=== PATIENT | male | born 1945 | race Caucasian/White ===

== ENCOUNTER 2018-04-08 10:32 | Inpatient (IN) | payer OTHER, MEDICARE ==
[~2018-04-08] VITALS: Ht 170.2 cm; Wt 540.3 kg
[~2018-04-08 10:32] MED LIST: ADVAIR DISKUS 21 DSK INH; ALBUTEROL SULFAT3 M1 INH; ALBUTEROL2.5 MG/3 M INH/SOL; AMLODIPINE BES2.5 M1 PO; APIX5T PO; ARICEPT10 M1 PO; ARICEPT10 MG PO; ASPIRIN EC81 M1 PO; ASPIRIN325 M2 PO; AZITHROMYCIN250 M1 PO; CARBIDOPA-LEVO1 EAC7 PO; CARBIDOPA/LEVOD1 TA1 PO; CEFTIN500 M1 PO; COL-RITE100 MG PO; DONEPEZIL HYDROC5 MG PO; FIBRO-TABS1 TAB PO; FLOMAX(MONOGRA0.4 MG PO; FLOMAX0.4 M1 PO; FOLIC ACID0.8 MG PO; FOLIC ACID1 M1 PO; GABAPENTIN300 M2 PO; GUAIFENESI100 MG/5 M PO; KEPPRA500 M1 PO; LOSARTAN POTASS1 TA1 PO; LOSARTAN POTASS1 TA3 PO; LOSARTAN-HCTZ1 EACH PO; MAGNESIUM OXID400 MG PO; MAGNESIUM400 M1 PO; MECLIZINE HCL12.5 M1 PO; MELATONIN3 M4 PO; METFORMIN HCL500 M3 PO; METFORMIN HCL500 MG PO; MORPHINE SULFAT30 M5 PO; MULTIVITAMIN1 TAB PO; NATURAL FOLIC0.4 MG PO; NEURONTIN300 M1 PO; OMEPRAZOLE40 M1 PO; OMEPRAZOLE40 MG PO; PAIN RELIEF650 MG PO; PRAVASTATIN SOD40 MG PO; PRAVASTATIN40 MG PO; PREDNISONE10 M2 PO; PREDNISONE10 MG PO; PREDNISONE20 M1 PO; PREDNISONE5 M1 PO; PROAIR HFA0.09 MG/Ac INH; SERTRALINE HCL25 MG PO; SPIRIVA 18 MCG18 MCG INH; SPIRIVA18 MCG INH; SYMBICORT 160/41 PUF INH; SYMBICORT 80-10.2 GM INH; SYMBICORT 80/4.1 PUF INH; TRAMADOL HCL50 M1 PO; TYLENOL EXTRA500 MG PO
[2018-04-08 12:05] LABS: ABSOLUTE BASOPHIL COUNT 0 /CUMM (0.0-0.2); ABSOLUTE EOSINOPHIL COUNT 0 /CUMM (0.0-0.7); ABSOLUTE GRANULOCYTE CT 4.7 /CUMM (1.4-6.5); ABSOLUTE MONOCYTE COUNT 0.8 /CUMM (0.10-0.60); BASOPHIL % 0.4 % (0.0-2.0); EOSINOPHIL % 0.5 % (0-5); GRANULOCYTE % 71.9 % (42.2-75.2); HEMATOCRIT 30.9 % (42-52); MEAN CORPUSCULAR HGB 27.6 PG (27.0-31.0); MEAN CORPUSCULAR HGB CONC 32.8 G/DL (33.0-37.0); MEAN CORPUSCULAR VOLUME 84.4 FL (80.0-94.0); MEAN PLATELET VOLUME 7.3 FL (7.4-10.4); PLATELET COUNT 350 /CUMM (130-400); RBC DISTRIBUTION WIDTH 17.4 % (11.5-14.5); RED BLOOD CELL CT 3.66 /CUMM (4.70-6.10); WHITE BLOOD CELL COUNT 6.6 /CUMM (4.8-10.8)
--- NOTE | 2018-04-08 12:55 | RADIOLOGY REPORT ---
EXAMINATION: XR CHEST CLINICAL INFORMATION: Shortness of breath. COMPARISON: Chest radiograph 06/13/2016. TECHNIQUE: 2 views of the chest were obtained. FINDINGS: Lungs are well-expanded. There is no focal consolidative disease, pleural effusion, or pneumothorax. The cardiac silhouette and upper mediastinal contours are normal. No acute osseous finding. IMPRESSION: Unremarkable chest radiograph. No consolidative disease or effusion.
[2018-04-08] MEDS ORDERED: PREDNISONE5 M1 PO (13:22)
--- NOTE | 2018-04-08 13:22 | ED DYSPNEA/ASTHMA COMPLAINT ---
History of Present Illness General Chief Complaint: Dyspnea (COPD, CHF, Other) Stated Complaint: SOB Source: patient, family, old records Exam Limitations: no limitations Vital Signs & Intake/Output Vital Signs & Intake/Output Vital Signs Date Time Temp Pulse Resp B/P B/P Pulse O2 O2 Flow FiO2 Mean Ox Delivery Rate 04/08 1517 98.2 93 17 117/58 94 Room Air 04/08 1431 97 04/08 1258 97.8 96 22 117/60 97 Room Air 04/08 1051 97.7 103 20 102/62 96 Room Air Allergies Coded Allergies: NO KNOWN ALLERGIES (01/16/15) Reconcile Medications Acetaminophen (Pain Relief) 650 MG TABLET.ER 1 TAB PO BID PAIN (Reported) Albuterol Sulfate 2.5 MG/3 ML VIAL.NEB 1 Vial INH/VIDYA Q4P PRN COPD (Reported) Amlodipine Besylate 2.5 MG TABLET 1 TAB PO DAILY BP (Reported) Aspirin (Aspirin*) 325 MG TABLET 1 TAB PO DAILY heart health Budesonide/Formoterol Fumarate (Symbicort 80-4.5 Mcg Inhaler) 10.2 GM HFA.AER.AD 2 PUF INH BID COPD Carbidopa/Levodopa (Carbidopa-Levodopa 25-100 Tab) 25 MG-100 MG TABLET 1 TAB PO DAILY PARKINSONS (Reported) Donepezil HCl (Aricept) 10 MG TABLET 1 TAB PO QPM PARKINSONS (Reported) Folic Acid 1 MG TABLET 1 TAB PO DAILY SUPPLEMENT (Reported) Levetiracetam (Keppra) 500 MG TABLET 1 TAB PO BID SEIZURES (Reported) Losartan/Hydrochlorothiazide (Losartan-Hctz 100-12.5 MG Tab) 1 EACH TABLET 1 TAB PO DAILY Blood pressure (Reported) Magnesium Oxide (Magnesium) 400 MG CAPSULE 1 CAP PO DAILY SUPPLEMENT ( Reported) Metformin HCl 500 MG TABLET 1 TAB PO BID DIABETES (Reported) Omeprazole 40 MG CAPSULE.DR 1 CAP PO DAILY ACID REFLUX (Reported) Prednisone 5 MG TABLET 1 TAB PO MoWeFr COPD (Reported) Tiotropium [place] (Spiriva) 18 MCG CAP.W.DEV 1 CAP INH DAILY COPD (Reported) Tramadol HCl 50 MG TABLET 50 MG PO BID PRN ANXIETY/AGITATION/INSOMNIA Triage Note: PT STATES HIS BACK HURTS AND HE CAN'T BREATH VERY WELL. PT STATES HE FELL LAST EVENING INTO HIS CHAIR. Triage Nurses Notes Reviewed? yes Onset: 1 day Duration: day(s):, constant, continues in ED, getting worse Timing: recent history Severity: moderate, severe Activities at Onset: rest Prior Episodes/Possible Cause: chronic episodes Modifying Factors: Improves With: rest. Worsens With: movement. Associated Symptoms: cough, wheezing, weakness HPI: 1 day prior to admission patient complains of increasing shortness of breath nonproductive cough wheezing and weakness. He fell from into his chair now complaining of low mid back pain. Prior to admission he had an episode of nausea and vomiting. He denies fever chills chest pain headache dysuria rash bleeding. Past History Travel History Traveled to [place] past 21 day No Medical History Any Pertinent Medical History? 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 No Review of Systems Review of Systems Constitutional: Reports: see HPI, malaise, weakness. EENTM: Reports: no symptoms. Respiratory: Reports: see HPI, cough, short of breath, wheezing. Cardiovascular: Reports: no symptoms. GI: Reports: see HPI, nausea, vomiting. Genitourinary: Reports: no symptoms. Musculoskeletal: Reports: see HPI, back pain. Skin: Reports: no symptoms. Neurological/Psychological: Reports: no symptoms. Hematologic/Endocrine: Reports: no symptoms. Immunologic/Allergic: Reports: no symptoms. All Other Systems: Reviewed and Negative Physical Exam Physical Exam General Appearance: well developed/nourished, alert, awake, anxious, moderate distress, obese Head: atraumatic, normal appearance Eyes: Bilateral: normal appearance, PERRL, EOMI. Ears, Nose, Throat: normal pharynx, normal ENT inspection, hearing grossly normal Neck: normal inspection, supple, full range of motion, no midline tenderness Respiratory: chest non-tender, quiet respiration, decreased breath sounds, wheezing Cardiovascular: regular rate/rhythm, normal peripheral pulses, tachycardia, norml femoral pulses equa Peripheral Pulses: 4+ carotid (R), 4+ carotid (L) Gastrointestinal: normal bowel sounds, soft, non-tender, no organomegaly Extremities: normal inspection, normal capillary refill, normal range of motion, no edema Neurologic/Psych: no motor/sensory deficits, awake, alert, oriented x 3, normal mood/affect, 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 Yes No ASA d/t Pharmacological CI CVA/TIA Diagnosis No Sepsis Present: No Sepsis Focused Exam Completed? No Progress Differential Diagnosis: asthma, bronchitis, CHF, COPD, pneumonia Plan of Care: Orders Procedure Date/time Status Add-on Test (ER Only) 04/08 1623 Active LACTIC ACID 04/08 1623 Active URINALYSIS 04/08 1301 Active GLYCOSYLATED HGB 04/08 1154 Active CREATINE PHOSPHOKINASE 04/08 1154 Active TROPONIN LEVEL 04/08 1136 Active COMPREHENSIVE METABOLIC PANEL 04/08 1136 Active CBC WITHOUT DIFFERENTIAL 04/08 1136 Complete EKG 04/08 1033 Active Laboratory Tests 04/08/18 1556: Urine Color Pending, Urine Clarity Pending, Urine pH Pending, Ur Specific [place] Pending, Urine Protein Pending, Urine Ketones Pending, Urine Nitrite Pending, Urine Bilirubin Pending, Urine Urobilinogen Pending, Ur Leukocyte Esterase Pending, Ur Microscopic SEDIMENT EXAMINED, Urine RBC Pending, Urine Hemoglobin Pending, Urine Glucose Pending 04/08/18 1154: Anion Gap 20 H, Estimated GFR 28 L, BUN/Creatinine Ratio 21.3, Glucose 104 H, Hemoglobin A1c Pending, Calcium 8.4, Total Bilirubin 0.3, AST 15 L, ALT 22, Alkaline Phosphatase 84, Creatine Kinase Pending, Troponin I < 0.01, Total Protein 7.0, Albumin 4.1, Globulin 2.9, Albumin/Globulin Ratio 1.4, CBC w Diff NO MAN DIFF REQ, RBC 3.66 L, MCV 84.4, MCH 27.6, MCHC 32.8 L, RDW 17.4 H, MPV 7.3 L, Gran % 71.9, Lymphocytes % 15.4 L, Monocytes % 11.8 H, Eosinophils % 0.5, Basophils % 0.4, Absolute Granulocytes 4.7, Absolute Lymphocytes 1.0 L, Absolute Monocytes 0.8 H, Absolute Eosinophils 0, Absolute Basophils 0 Diagnostic Imaging: Viewed by Me: Radiology Read, CT Scan. Discussed w/RAD: Radiology Read, CT Scan. Radiology Impression: 1. There are no acute fractures or subluxations. 2. There are sequelae of an instrumented posterior decompression and fusion at L4 and L5. The hardware appears intact. 3. There are multilevel spondylitic changes with spondylolistheses, facet arthropathy and foraminal narrowing as described above. 4. There is a partially visualized hiatal hernia, and is evidence of diverticulosis., 1. Hiatal hernia containing a significant portion of the stomach. 2. Nonobstructing calculus, lower pole, left kidney. No hydronephrosis. 3. Diverticulosis without diverticulitis. 4. Posterior spinal fusion L4-L5, ( reported separately). CXR Impression: Unremarkable chest radiograph. No consolidative disease or effusion. Initial ED EKG: normal axis, normal intervals, normal p-waves, normal QRS complex, normal sinus rhythm, rhythm (sinus tachycardia), no ST T wave changes Prior EKG: unchanged Rhythm Strip: sinus tachycardia Departure Departure Time of Disposition: 1633 Disposition: STILL A PATIENT Condition: Stable Clinical Impression Primary Impression: Acute kidney injury Secondary Impressions: Fall at home, Weakness Referrals: Vinnie Stanford MD (PCP/Family) Departure Forms: Customer Survey General Discharge Information Admission Note Spoke With: Vinnie Stanford MD Documentation of Exam: Documentation of any treatments & extenuating circumstances including Concerns Regarding Discharge (functional status, medication knowledge or non-compliance, living conditions, etc.) that warrant an admission rather than observation: Serial beta agonist nebs gentle IV hydration serial lab exam physical therapy medication adjustment ensure safety continuing care discharge planning. Critical Care Note Critical Care Note Critical Care Time: 30-74 min (40)
--- NOTE | 2018-04-08 15:50 | CT SCAN REPORT ---
EXAMINATION: CT LUMBAR SPINE WITHOUT CONTRAST CLINICAL INFORMATION: Low back pain after slip. Assess for fracture. COMPARISON: MRI scan of the lumbar spine 05/03/2008. TECHNIQUE: Helical non-contrast CT images were obtained through the lumbar spine and 1.25 and 2.5 mm axial reconstructions were reviewed along with sagittal and coronal MPRs. DLP: 1207.58 mGy-cm FINDINGS: Since the prior study there has been an instrumented posterior decompression and fusion at L4 on L5. There are bilateral pedicular screws in L4 and L5 joined by vertical rods and a transverse bar. The hardware appears intact without evidence of fracture or loosening. There is an intervertebral disc device at L4-L5. There is a mild levoscoliosis. There are mild retrolistheses of L2 on L3, L3 on L4 and L5 on S1. The mild anterolisthesis of L4 on L5 is not appreciated on this postoperative study. There is narrowing of intervertebral disc height at multiple levels with vacuum disc changes. There are degenerative endplate contour changes most prominently noted at L2-L3. Irregularity of the superior body of T12 is unchanged compared to the prior MRI scan. There are no acute fractures. A partially visualized hiatal hernia is demonstrated. There are atheromatous calcifications of the aorta. No aneurysms are demonstrated. There are multiple right-sided renal cysts. There is moderate sigmoid diverticulosis. The sacroiliac joints are intact. SPINAL LEVELS: T12-L1: The disc configuration is normal. The central canal and neural foramina are widely patent. The facet joints are normal. L1-L2: There is mild bilateral facet arthropathy. There is a right sided disc protrusion extending far laterally without definite exiting nerve root impingement. There is no central stenosis. L2-L3: There is moderate bilateral facet arthropathy. There is a posterior disc osteophyte complex extending into the right greater than left neural foramina. There is no central stenosis. L3-L4: There is bilateral facet arthropathy. There is a posterior disc protrusion extending into the neural foramina bilaterally. There is narrowing of the left greater than right subarticular recesses. There is no central stenosis. L4-L5: There are sequelae of a posterior decompression. There are facet arthropathic changes, and evidence of lateral mass fusions. There appears to be an osteophytic ridge extending into the right neural foramen. The left neural foramen is patent. There is no central stenosis. L5-S1: There is severe left and moderate right facet arthropathy. There is a posterior disc osteophyte complex extending into the neural foramina bilaterally. There appears to be mild impingement on the traversing S1 nerve roots, but there is no central stenosis. IMPRESSION: 1. There are no acute fractures or subluxations. 2. There are sequelae of an instrumented posterior decompression and fusion at L4 and L5. The hardware appears intact. 3. There are multilevel spondylitic changes with spondylolistheses, facet arthropathy and foraminal narrowing as described above. 4. There is a partially visualized hiatal hernia, and is evidence of diverticulosis.
--- NOTE | 2018-04-08 16:26 | CT SCAN REPORT ---
EXAMINATION: CT ABDOMEN AND PELVIS WITHOUT CONTRAST CLINICAL INFORMATION: 73-year-old male patient with back pain. Trauma. "Worsening renal fcn". COMPARISON: None pertinent. TECHNIQUE: Multidetector volumetric imaging was performed from the superior aspect of the liver through the pubic symphysis. Sagittal and coronal reformatted images were obtained on the technologist's workstation. DLP: 651 mGy-cm FINDINGS: Family Resource Management Specialist: A posterior spinal fusion has been performed at the level of L4-L5. There is diffuse calcification of the abdominal aorta. A moderate size hiatal hernia is present. LUNG BASES: The visualized lung bases are unremarkable. There is intrafissural fat in the inferior aspect of the left major fissure. A hiatal hernia contains approximately one half the stomach. LIVER, GALLBLADDER, AND BILIARY TREE: Normal. PANCREAS: Age-related atrophy. SPLEEN: Unremarkable. ADRENAL GLANDS: Unremarkable. KIDNEYS AND URETERS: The kidneys are normal in size, shape, and attenuation. The right kidney measures 11.1 cm in length, the left kidney measures 10.7 cm. No hydronephrosis. A 4 mm nonobstructing calculus is located in the lower pole the left kidney. A 1.6 cm in diameter exophytic cyst arises from the midportion of the right kidney. A 0.9 cm exophytic cyst arises from the upper pole of the right kidney. There is bilateral chronic perinephric stranding. BLADDER: Partially filled and unremarkable. GASTROINTESTINAL TRACT: Sigmoid diverticulosis is present without diverticulitis. The appendix is normal and contains some dense intraluminal material. Small bowel is not dilated. ABDOMINAL WALL: There is a small fat-containing umbilical hernia. LYMPH NODES: Normal. VASCULAR: Calcific atherosclerosis involves the thoracic and abdominal aorta and branch vessels. PELVIC VISCERA: Coarse calcifications are present in otherwise normal-appearing prostate gland. OSSEOUS STRUCTURES: No fractures. A dedicated CT exam of the lumbosacral spine was obtained today and the results are included in a separate report. IMPRESSION: 1. Hiatal hernia containing a significant portion of the stomach. 2. Nonobstructing calculus, lower pole, left kidney. No hydronephrosis. 3. Diverticulosis without diverticulitis. 4. Posterior spinal fusion L4-L5, (reported separately).
--- NOTE | 2018-04-08 17:13 | History & Physical ---
Latasha OWENS,[facility] 04/08/18 1942: General Information and HPI MD Statement: I have seen and personally examined MEGAN CHERY and documented this H&P. The patient is a 73 year old M who presented with a patient stated chief complaint of []. History of Present Illness: 73-year-old gentleman with past medical history of COPD, diastolic CHF, HTN, Parkinson's disease, lewy body dementia, HLD, bronchomalacia, COPD not on home O2, GERD, chronic back pain and diabetes who presented to the ED with complaints of shortness of breath, diarrhea. Patient was in usual state of health until a week ago. Patient was taking pupe-isr-iladzmd Imodium for his constipation. According to the niece was at the bedside found that he completed the full bottle of Imodium within a week. For the past 1 week he's been having watery diarrhea followed by decreased by mouth intake. At baseline, according to the niece he is alert and oriented 3. But she found him more confused since today morning. Patient's mentation has been declining since the of his . Allergies/Medications Allergies: Coded Allergies: NO KNOWN ALLERGIES (01/16/15) Home Med list Acetaminophen (Pain Relief) 650 MG TABLET.ER 1 TAB PO BID PAIN (Reported) Albuterol Sulfate 2.5 MG/3 ML VIAL.NEB 1 Vial INH/VIDYA Q4P PRN COPD (Reported) Amlodipine Besylate 2.5 MG TABLET 1 TAB PO DAILY BP (Reported) Budesonide/Formoterol Fumarate (Symbicort 80-4.5 Mcg Inhaler) 10.2 GM HFA.AER.AD 2 PUF INH BID COPD Carbidopa/Levodopa (Carbidopa-Levodopa 25-100 Tab) 25 MG-100 MG TABLET 1 TAB PO DAILY PARKINSONS (Reported) Donepezil HCl (Aricept) 10 MG TABLET 1 TAB PO QPM PARKINSONS (Reported) Folic Acid 1 MG TABLET 1 TAB PO DAILY SUPPLEMENT (Reported) Levetiracetam (Keppra) 500 MG TABLET 1 TAB PO BID SEIZURES (Reported) Losartan/Hydrochlorothiazide (Losartan-Hctz 100-12.5 MG Tab) 1 EACH TABLET 1 TAB PO DAILY Blood pressure (Reported) Magnesium Oxide (Magnesium) 400 MG CAPSULE 1 CAP PO DAILY SUPPLEMENT ( Reported) Metformin HCl 500 MG TABLET 1 TAB PO BID DIABETES (Reported) Omeprazole 40 MG CAPSULE. 1 CAP PO DAILY ACID REFLUX (Reported) Prednisone 5 MG TABLET 1 TAB PO MoWeFr COPD (Reported) Tiotropium [place] (Spiriva) 18 MCG CAP.W.DEV 1 CAP INH DAILY COPD (Reported) Tramadol HCl 50 MG TABLET 50 MG PO BID PRN ANXIETY/AGITATION/INSOMNIA Compliance With Home Meds: GOOD Past History Travel History Traveled to [place] past 21 day No Medical History Neurological: Parkinson's disease, seizure EENT: NONE Cardiovascular: hypertension, hyperlipidemia Respiratory: COPD Gastrointestinal: GERD Hepatic: NONE Renal: NONE Musculoskeletal: chronic back pain Psychiatric: NONE Endocrine: diabetes Blood Disorders: NONE Cancer(s): NONE CATECHIST/Reproductive: NONE History of MRSA: No History of VRE: No History of CDIFF: No Pneumonia Vaccine: 11/17/15 Surgical History Surgical History: non-contributory, N Past Family/Social History Family History Relations & Conditions if any SON FH: multiple sclerosis SON FH: lung cancer Psychosocial History Where do you live? Home Who Do You Live With? spouse Services at Home: None Primary Language: Nepali ETOH Use: denies use Illicit Drug Use: denies illicit drug use Functional Ability ADLs Independent: dressing, eating, toileting, bathing. Ambulation: independent IADLs Independent: shopping, housework, finances, food prep, telephone, transportation , medication admin. Review of Systems Review of Systems Constitutional: Reports: no symptoms. Cardiovascular: Reports: no symptoms. Respiratory: Reports: no symptoms. GI: Reports: diarrhea. Genitourinary: Reports: no symptoms. Musculoskeletal: Reports: no symptoms. Skin: Reports: no symptoms. Neurological/Psychological: Reports: confusion, dementia. Exam & Diagnostic Data Last 24 Hrs of Vital Signs/I&O Vital Signs Date Time Temp Pulse Resp B/P B/P Pulse O2 O2 Flow FiO2 Mean Ox Delivery Rate 04/08 1905 97.8 87 18 136/61 96 Room Air 04/08 1517 98.2 93 17 117/58 94 Room Air 04/08 1431 97 04/08 1258 97.8 96 22 117/60 97 Room Air 04/08 1051 97.7 103 20 102/62 96 Room Air Intake & Output 04/08 1600 04/08 0800 04/08 0000 Intake Total Output Total Balance Patient 200 lb Weight Weight Reported by Patient Measurement Method Physical Exam General Appearance Alert, Cooperative, No Acute Distress, oriented x 2 Cardiovascular Regular Rate, Normal S1, Normal S2 Lungs Clear to Auscultation Abdomen Soft, No Tenderness, No Hepatospenomegaly Neurological Normal Speech, Sensation Intact Extremities No Edema Last 24 Hrs of Labs/Yvon: Laboratory Tests 04/08/18 1731: Lactic Acid 2.1 04/08/18 1556: Urinalysis LIGHT H, Urine Color YEL, Urine Clarity CLEAR, Urine pH 6.0, Ur Specific [place] >= 1.030, Urine Protein NEG, Urine Ketones NEG, Urine Nitrite NEG, Urine Bilirubin NEG, Urine Urobilinogen 0.2, Ur Leukocyte Esterase NEG, Ur Microscopic SEDIMENT EXAMINED, Urine RBC 50-75 H, Urine WBC RARE, Ur Epithelial Cells RARE, Urine Bacteria RARE H, Urine Mucus RARE, Urine Hemoglobin LARGE H, Urine Glucose NEG 04/08/18 1154: Anion Gap 20 H, Estimated GFR 28 L, BUN/Creatinine Ratio 21.3, Glucose 104 H, Hemoglobin A1c Pending, Calcium 8.4, Magnesium 2.3, Total Bilirubin 0.3, AST 15 L, ALT 22, Alkaline Phosphatase 84, Creatine Kinase 164, Troponin I < 0.01, Total Protein 7.0, Albumin 4.1, Globulin 2.9, Albumin/Globulin Ratio 1.4, Vitamin B12 > 1000 H, Folate Pending, Cortisol AM Sample 14.4, CBC w Diff NO MAN DIFF REQ, RBC 3.66 L, MCV 84.4, MCH 27.6, MCHC 32.8 L, RDW 17.4 H, MPV 7.3 L, Gran % 71.9, Lymphocytes % 15.4 L, Monocytes % 11.8 H, Eosinophils % 0.5, Basophils % 0.4, Absolute Granulocytes 4.7, Absolute Lymphocytes 1.0 L, Absolute Monocytes 0.8 H, Absolute Eosinophils 0, Absolute Basophils 0 Microbiology 04/08 180 URINE ROUT: Urine Culture - ORD 04/08 174 STOOL: Clostridium difficile Toxin A & B - COLB Assessment/Plan Assessment: 73-year-old gentleman with past medical history of COPD, diastolic CHF, HTN, Parkinson's disease, HLD, COPD not on home O2, GERD, chronic back pain and diabetes who presented to the ED with complaints of shortness of breath, diarrhea. Admission vitals temperature 98.2, pulse rate 93, blood pressure 117/58, pulse oximeter 94 at room air. Admission labs WBC 6.6, hemoglobin 10.1, platelets 350, sodium 144, potassium 4.7, BUN 49 creatinine 2.3, CO2 20, anion gap 20, GFR 28, troponin 0.01, alkaline phosphatase 84, pending urine analysis ED treatment Albuterol, ipratropium, acetaminophen IV Imaging Chest [id number] chest radiograph ct Lumbar There are sequelae of an instrumented posterior decompression and fusion at L4 and L5. The hardware appears intact.There are multilevel spondylitic changes with spondylolistheses, facet arthropathy and foraminal narrowing as described above. There is a partially visualized hiatal hernia, and is evidence of diverticulosis. Assessment and plan 1. Diarrhe with anionic gap metabolic acidosis 2. JAN 3. Fall-fall precautions 4. Parkinson's 5. Dementia 6. Bronchomalacia * Admitted [facility] * Diarrhea with anionic gap metabolic acidosis/JAN-we will treat him with gentle hydration. * Fall-secondary due to diarrhea/Parkinson's at baseline patient doesn't use cane/walker. Physical therapy consult. Continue Sinemet * Seizures-patient is on Keppra. We'll continue the same and check Keppra level. * Confusion-we will check urine analysis and culture. * Diabetes-we will hold metformin and put him on Accu-Cheks and sliding scale NovoLog insulin Home medications Acetaminophen-hold Albuterol-continue Amlodipine 2.5 mg daily Aspirin 325 mg daily-change to aspirin 81 Symbicort-continue Sinemet 1 tablet daily-continue Donnapezil 10 mg every afternoon-no hold Folic acid-continue Keppra 500 twice a day-check Keppra levels and continue Losartan/hydrochlorothiazide 1 tablet daily-hold Metformin 500 twice a day omeprazole 40 daily-hold Prednisone 5 mg 1 tablet Wednesday/Wednesday/Wednesday-hold Spiriva-continue Tramadol 50prn-continue As Ranked By This Provider Problem List: 1. Fall at home 2. Acute kidney injury Core Measures/Misc (07/25) Acute Coronary Syndrome ACS Diagnosis: No Congestive Heart Failure Congestive Heart Failure Diagnosis No Cerebrovascular Accident CVA/TIA Diagnosis: No VTE (View Protocol) VTE Risk Factors Age>40 No Mechanical VTE Prophylaxis d/t Other No VTE Pharm Prophylaxis d/t Other Sepsis (View protocol) Sepsis Present: No If YES complete Sepsis Event Note If YES complete Sepsis Event Note Jason Padilla 04/09/18 0640: Core Measures/Misc (07/25) Sepsis (View protocol) If YES complete Sepsis Event Note If YES complete Sepsis Event Note Resident Review Statement Resident Statement: examined this patient, discussed with dental internship, agreed with dental internship, discussed with family, reviewed EMR data (avail), discussed with nursing , discussed with case mgmt, reviewed images, amended to note Other Findings: 73-year-old gentleman past medical history of bronchial tracheomalacia, diastolic CHF, hypertension, Parkinson's disease who presented to [facility] ED with complaints of diarrhea and worsening breathing symptoms. Patient's diarrhea has been ongoing for last 1 week, and not controlled with use of adoc-wph-bqkwovr Imodium. No recent antibiotic use, no recent sick contacts, no recent travel, no outside food intake. Afebrile since arrival to ED. Labs significant for chronic normocytic anemia, with increased RDW suggestive of some degree of underlying iron deficiency. Chemistries significant for AGMA likely in the setting of acute kidney injury. Normal lactate. UA unremarkable. Also complains of back pain, with no CT evidence of acute fractures or subluxations. Positive multilevel spondylitic changes. 1. Diarrhea. Check C. difficile. Symptomatic management. IV fluids. May use antimotility agents, low suspicion for C. difficile as well as data for use of antimotility agents in low suspicion C. difficile is equivocal. Renal causes-calcium channel blockers (like Norvasc) can contribute to noninfection diarrhea. 2. Acute kidney injury. Likely secondary to diarrhea and dehydration. IV fluid repletion. Check BEP in morning. No evidence of obstruction on CT abdomen pelvis. Get post void residual volume. Straight cath if necessary. Hold losartan HCTZ as well as metformin. 3. Bronchomalacia. TRC nebs. Inhalers as prescribed. 4. Chronic back pain. Continue tramadol. Physical therapy evaluation. 5. History of seizures. Continue Keppra at current dose. Check Keppra levels. 6. History of Parkinson's. Continue Sinemet. 7. History of diabetes. Accu-Cheks 3 times daily before meals at bedtime. Mealtime and bedtime coverage with NovoLog ISS. DNR/DNI. Heparin subcu for DVT prophylaxis. Consistent carbohydrate diet.
--- NOTE | 2018-04-08 17:27 | PN- Att Addend ---
Attending Addendum Attending Brief Note Full note per chief informatics officer Pt with multiple issues as noted below with Sig diarrhea for 2 days Decreased po intake Now fall and low back pain Has worseing dementia In the ed has ARF with dehydration with met acidosis and being admitted has severe copd but no sig wheezing Has severe tracheobronchomalacia Medical History Any Pertinent Medical History? 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 No Review of Systems Review of Systems Constitutional: Reports: see HPI, malaise, weakness. EENTM: Reports: no symptoms. Respiratory: Reports: see HPI, cough, short of breath, wheezing. Cardiovascular: Reports: no symptoms. GI: Reports: see HPI, nausea, vomiting. Genitourinary: Reports: no symptoms. Musculoskeletal: Reports: see HPI, back pain. Skin: Reports: no symptoms. Neurological/Psychological: Reports: no symptoms. Hematologic/Endocrine: Reports: no symptoms. Immunologic/Allergic: Reports: no symptoms. All Other Systems: Reviewed and Negative Vital Signs Date Time Temp Pulse Resp B/P B/P Pulse O2 O2 Flow FiO2 Mean Ox Delivery Rate 04/08 1517 98.2 93 17 117/58 94 Room Air 04/08 1431 97 04/08 1258 97.8 96 22 117/60 97 Room Air 04/08 1051 97.7 103 20 102/62 96 Room Air Laboratory Tests 04/08/18 1556: Urinalysis LIGHT H, Urine Color YEL, Urine Clarity CLEAR, Urine pH 6.0, Ur Specific [place] >= 1.030, Urine Protein NEG, Urine Ketones NEG, Urine Nitrite NEG, Urine Bilirubin NEG, Urine Urobilinogen 0.2, Ur Leukocyte Esterase NEG, Ur Microscopic SEDIMENT EXAMINED, Urine RBC 50-75 H, Urine WBC RARE, Ur Epithelial Cells RARE, Urine Bacteria RARE H, Urine Mucus RARE, Urine Hemoglobin LARGE H, Urine Glucose NEG 04/08/18 1154: Anion Gap 20 H, Estimated GFR 28 L, BUN/Creatinine Ratio 21.3, Glucose 104 H, Hemoglobin A1c Pending, Calcium 8.4, Total Bilirubin 0.3, AST 15 L, ALT 22, Alkaline Phosphatase 84, Creatine Kinase 164, Troponin I < 0.01, Total Protein 7.0, Albumin 4.1, Globulin 2.9, Albumin/Globulin Ratio 1.4, CBC w Diff NO MAN DIFF REQ, RBC 3.66 L, MCV 84.4, MCH 27.6, MCHC 32.8 L, RDW 17.4 H, MPV 7.3 L , Gran % 71.9, Lymphocytes % 15.4 L, Monocytes % 11.8 H, Eosinophils % 0.5, Basophils % 0.4, Absolute Granulocytes 4.7, Absolute Lymphocytes 1.0 L, Absolute Monocytes 0.8 H, Absolute Eosinophils 0, Absolute Basophils 0 Orders Procedure Date/time Status Consistent Carbohydrate 2 04/09 B Active OXYGEN SETUP (GEN) 04/08 1652 Active Saline Lock 04/08 1652 Active Admit to inpatient 04/08 1652 Active Vital Signs 04/08 1652 Active Activity/Ambulation 04/08 1652 Active Code Status 04/08 1652 Active Add-on Test (ER Only) 04/08 1623 Active LACTIC ACID 04/08 1623 Active URINALYSIS 04/08 1301 Complete GLYCOSYLATED HGB 04/08 1154 Active CREATINE PHOSPHOKINASE 04/08 1154 Active TROPONIN LEVEL 04/08 1136 Active COMPREHENSIVE METABOLIC PANEL 04/08 1136 Active CBC WITHOUT DIFFERENTIAL 04/08 1136 Complete EKG 04/08 1033 Active General Appearance: well developed/nourished, alert, awake, anxious, moderate distress, obese Head: atraumatic, normal appearance Eyes: Bilateral: normal appearance, PERRL, EOMI. Ears, Nose, Throat: normal pharynx, normal ENT inspection, hearing grossly normal Neck: normal inspection, supple, full range of motion, no midline tenderness Respiratory: chest non-tender, quiet respiration, decreased breath sounds, wheezing Cardiovascular: regular rate/rhythm, normal peripheral pulses, tachycardia, norml femoral pulses equa Peripheral Pulses: 4+ carotid (R), 4+ carotid (L) Gastrointestinal: normal bowel sounds, soft, non-tender, no organomegaly Extremities: normal inspection, normal capillary refill, normal range of motion, no edema Neurologic/Psych: no motor/sensory deficits, awake, alert, oriented x 3, normal mood/affect, motor mechanic II-XII nml as tested, motor weakness Skin: intact, normal color, warm/dry Lymphatic: no anterior cervical ian LUNG BASES: The visualized lung bases are unremarkable. There is intrafissural fat in the inferior aspect of the left major fissure. A hiatal hernia contains approximately one half the stomach. LIVER, GALLBLADDER, AND BILIARY TREE: Normal. PANCREAS: Age-related atrophy. SPLEEN: Unremarkable. ADRENAL GLANDS: Unremarkable. KIDNEYS AND URETERS: The kidneys are normal in size, shape, and attenuation. The right kidney measures 11.1 cm in length, the left kidney measures 10.7 cm. No hydronephrosis. A 4 mm nonobstructing calculus is located in the lower pole the left kidney. A 1.6 cm in diameter exophytic cyst arises from the midportion of the right kidney. A 0.9 cm exophytic cyst arises from the upper pole of the right kidney. There is bilateral chronic perinephric stranding. BLADDER: Partially filled and unremarkable. GASTROINTESTINAL TRACT: Sigmoid diverticulosis is present without diverticulitis. The appendix is normal and contains some dense intraluminal material. Small bowel is not dilated. ABDOMINAL WALL: There is a small fat-containing umbilical hernia. LYMPH NODES: Normal. VASCULAR: Calcific atherosclerosis involves the thoracic and abdominal aorta and branch vessels. PELVIC VISCERA: Coarse calcifications are present in otherwise normal-appearing prostate gland. OSSEOUS STRUCTURES: No fractures. A dedicated CT exam of the lumbosacral spine was obtained today and the results are included in a separate report. IMPRESSION: 1. Hiatal hernia containing a significant portion of the stomach. 2. Nonobstructing calculus, lower pole, left kidney. No hydronephrosis. 3. Diverticulosis without diverticulitis. 4. Posterior spinal fusion L4-L5, (reported separately). DICTATED BY: Papito Pandya MD DATE/TIME DICTATED:04/08/181537 IMPRESSION: 1. There are no acute fractures or subluxations. 2. There are sequelae of an instrumented posterior decompression and fusion at L4 and L5. The hardware appears intact. 3. There are multilevel spondylitic changes with spondylolistheses, facet arthropathy and foraminal narrowing as described above. 4. There is a partially visualized hiatal hernia, and is evidence of diverticulosis. DICTATED BY: Toni Travis MD DATE/TIME DICTATED:04/08/181523 IMPRESSION Elderly Gentleman with worsening dementia with parkinsons features prob lewy body dementia with worsening overall status now with Diarrhea and a fall with some dyspnea His issues included * Diarrhea, dehydration, with acute renal failure. RUle out infection. 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 not a candidate for stent as his tracheobronchomalacia is diffuse even present in the right and the left main bronchus with is audible wheezing related to tracheo bronchomalacia * Moderate COPD with no significant COPD exacerbation * Significant hiatal hernia with recurrent GERD contributing to his issues * Progressive dementia most likely related to the lewy body dementia, * BPH, no clinical UTI * Patient has chronic low back pain with chronic pain medication before now on tramadol * DM / HTN/ electrolyte abnormalities / GERD etc REC Admit, ivf, work up diarrhea, hold colace, mag, metformin, omeprazole Cont other home meds including keppra and tramadol, use prn tylenol Hold losartan COnt inhalers and use prn nebs 81 mg asa Work up anemia COnt sinemet, keppra level Will follow K
[2018-04-08 20:00] VITALS: BP 100/54
--- NOTE | 2018-04-09 05:24 | PN- Housestaff ---
Subjective Follow-up For: Diarrhea AK I Subjective: Patient seen and examined at bedside. Patient seemed to be very confused, has baseline dementia. Denies any further episodes of diarrhea. Review of Systems Constitutional: Reports: no symptoms, see HPI. Objective Last 24 Hrs of Vital Signs/I&O Vital Signs Date Time Temp Pulse Resp B/P B/P Pulse O2 O2 Flow FiO2 Mean Ox Delivery Rate 04/08 2000 98.7 96 20 100/54 97 Room Air 04/08 2000 97 Room Air 04/08 1905 97.8 87 18 136/61 96 Room Air 04/08 1517 98.2 93 17 117/58 94 Room Air 04/08 1431 97 04/08 1258 97.8 96 22 117/60 97 Room Air 04/08 1051 97.7 103 20 102/62 96 Room Air Intake & Output 04/09 0800 04/09 0000 04/08 1600 Intake Total 35 Output Total 0 Balance 35 Intake, IV 10 Intake, Oral 25 Number 0 Bowel Movements Output, Urine 0 Patient 203 lb 200 lb Weight Weight Bed scale Reported by Patient Measurement Method Physical Exam General Appearance: Alert, Cooperative, No Acute Distress, CONFUSED Cardiovascular: Regular Rate, Normal S1, Normal S2, No Murmurs Lungs: Normal Air Movement Abdomen: Soft, No Tenderness, No Hepatospenomegaly Neurological: Normal Speech Current Medications: Current Medications Sig/Rufus Start time Last Medication Dose Route Stop Time Status Admin Acetaminophen 0 .STK-MED ONE 04/08 1435 DC IV Acetaminophen 1,000 MG ONCE ONE 04/08 1415 DC 04/08 IV 04/08 1416 1430 Albuterol Sulfate 3 ML Q4P PRN 04/08 1800 AC INH Albuterol Sulfate 3 ML ONCE ONE 04/08 1315 DC 04/08 INH 04/08 1316 1334 Amlodipine Besylate 2.5 MG DAILY 04/09 09 AC PO Budesonide/ 2 PUF BID 04/08 2100 AC 04/08 Formoterol Fumarate INH 2211 Carbidopa/Levodopa 1 TAB DAILY 04/09 900 AC PO Folic Acid 0 .STK-MED ONE 04/08 1809 DC PO Folic Acid 1 MG DAILY 04/08 1748 AC 04/08 PO 1803 Insulin Aspart 0 TIDAC/HS 04/08 2100 AC SC Ipratropium [place] 2.5 ML ONCE ONE 04/08 1315 DC 04/08 INH 04/08 1316 1334 Levetiracetam 500 MG BID 04/08 2100 AC 04/08 PO 2212 Nystatin 1 ALEKSEY TID PRN 04/08 2230 AC TOP Tiotropium [place] 1 PUF DAILY 04/08 1748 AC 04/08 INH 2212 Tramadol HCl 50 MG BID PRN 04/08 1800 AC PO Last 24 Hrs of Lab/Yvon Results Last 24 Hrs of Labs/Mics: Laboratory Tests 04/08/18 1802: Urine Color Cancelled, Urine Clarity Cancelled, Urine pH Cancelled, Ur Specific [place] Cancelled, Urine Protein Cancelled, Urine Ketones Cancelled, Urine Nitrite Cancelled, Urine Bilirubin Cancelled, Urine Urobilinogen Cancelled, Ur Leukocyte Esterase Cancelled, Ur Microscopic Cancelled, Urine Hemoglobin Cancelled, Urine Glucose Cancelled 04/08/18 1731: Lactic Acid 2.1 04/08/18 1556: Urinalysis LIGHT H, Urine Color YEL, Urine Clarity CLEAR, Urine pH 6.0, Ur Specific [place] >= 1.030, Urine Protein NEG, Urine Ketones NEG, Urine Nitrite NEG, Urine Bilirubin NEG, Urine Urobilinogen 0.2, Ur Leukocyte Esterase NEG, Ur Microscopic SEDIMENT EXAMINED, Urine RBC 50-75 H, Urine WBC RARE, Ur Epithelial Cells RARE, Urine Bacteria RARE H, Urine Mucus RARE, Urine Hemoglobin LARGE H, Urine Glucose NEG 04/08/18 1154: Haptoglobin Pending 04/08/18 1154: Anion Gap 20 H, Estimated GFR 28 L, BUN/Creatinine Ratio 21.3, Glucose 104 H, Hemoglobin A1c Pending, Calcium 8.4, Magnesium 2.3, Iron 32 L, TIBC 362, Ferritin 9.0 L, Total Bilirubin 0.3, AST 15 L, ALT 22, Alkaline Phosphatase 84 , Lactate Dehydrogenase 404, Creatine Kinase 164, Troponin I < 0.01, Total Protein 7.0, Albumin 4.1, Globulin 2.9, Albumin/Globulin Ratio 1.4, Vitamin B12 > 1000 H, Folate 17.1, Cortisol AM Sample 14.4, CBC w Diff NO MAN DIFF REQ, RBC 3.66 L, MCV 84.4, MCH 27.6, MCHC 32.8 L, RDW 17.4 H, MPV 7.3 L, Gran % 71.9, Lymphocytes % 15.4 L, Monocytes % 11.8 H, Eosinophils % 0.5, Basophils % 0.4, Absolute Granulocytes 4.7, Absolute Lymphocytes 1.0 L, Absolute Monocytes 0.8 H, Absolute Eosinophils 0, Absolute Basophils 0 Microbiology 04/08 1927 STOOL: Clostridium difficile Toxin A & B - RECD 04/08 1556 URINE ROUT: Urine Culture - RECD Assessment/Plan Assessment: 73-year-old gentleman with past medical history of COPD, diastolic CHF, HTN, Parkinson's disease, HLD, COPD not on home O2, GERD, chronic back pain and diabetes who presented to the ED with complaints of shortness of breath, diarrhea. Assessment and plan 1. Diarrhe with anionic gap metabolic acidosis 2. JAN 3. Fall-fall precautions 4. Parkinson's 5. Dementia 6. Bronchomalacia * Diarrhea with anionic gap metabolic acidosis/JAN-continue gentle hydration and follow up with BP today. * Fall-secondary due to diarrhea/Parkinson's at baseline patient doesn't use cane/walker. Physical therapy consult. Continue Sinemet * Seizures-patient is on Keppra. We'll continue the same and check Keppra level. * [id number] urine analysis and culture. * Diabetes-we will hold metformin and put him on Accu-Cheks and sliding scale NovoLog insulin * Avoid delirium triggers Problem List: 1. Acute kidney injury Pain Ratin Pain Location: NONE Pain Goal: Remain pain free Pain Plan: TYLENOL Tomorrow's Labs & Rationales: BEP
[2018-04-09 06:55] VITALS: BP 156/86
[2018-04-09 09:14] LABS: ABSOLUTE BASOPHIL COUNT 0 /CUMM (0.0-0.2); ABSOLUTE EOSINOPHIL COUNT 0.2 /CUMM (0.0-0.7); ABSOLUTE GRANULOCYTE CT 3.2 /CUMM (1.4-6.5); ABSOLUTE LYMPH COUNT 1.6 /CUMM (1.2-3.4); ABSOLUTE MONOCYTE COUNT 0.7 /CUMM (0.10-0.60); BASOPHIL % 0.7 % (0.0-2.0); HEMATOCRIT 29.1 % (42-52); MEAN CORPUSCULAR HGB 27.8 PG (27.0-31.0); MEAN CORPUSCULAR HGB CONC 32.9 G/DL (33.0-37.0); MEAN CORPUSCULAR VOLUME 84.5 FL (80.0-94.0); MEAN PLATELET VOLUME 7.7 FL (7.4-10.4); PLATELET COUNT 331 /CUMM (130-400); RBC DISTRIBUTION WIDTH 17.1 % (11.5-14.5); RED BLOOD CELL CT 3.44 /CUMM (4.70-6.10); WHITE BLOOD CELL COUNT 5.7 /CUMM (4.8-10.8)
--- NOTE | 2018-04-09 12:02 | PN- Pulmonary ---
Subjective HPI/Critical Care Issues: Patient seen and examined at bedside. Patient seemed to be very confused, has baseline dementia. Denies any further episodes of diarrhea. Review of Systems Constitutional: Reports: no symptoms, see HP Objective Current Medications: Current Medications Sig/Rufus Start time Last Medication Dose Route Stop Time Status Admin Acetaminophen 0 .STK-MED ONE 04/08 1435 DC IV Acetaminophen 1,000 MG ONCE ONE 04/08 1415 DC 06 IV 04/08 1416 1430 Albuterol Sulfate 3 ML BID 04/09 2100 UNV 04/09 INH 1145 Albuterol Sulfate 3 ML Q4P PRN 04/08 1800 AC INH Albuterol Sulfate 3 ML ONCE ONE 04/08 1315 DC 06 INH 04/08 1316 1334 Amlodipine Besylate 2.5 MG DAILY 04/09 0900 AC 04/09 PO 0831 Budesonide/ 2 PUF BID 04/08 2100 AC 04/09 Formoterol Fumarate INH 0831 Carbidopa/Levodopa 1 TAB DAILY 04/09 0900 AC 04/09 PO 0830 Folic Acid 0 .STK-MED ONE 04/08 1809 DC PO Folic Acid 1 MG DAILY 04/08 1748 AC 04/09 PO 0830 Heparin Sodium 5,000 UNIT Q8 04/09 0650 AC 04/09 (Porcine) SC 0831 Insulin Aspart 0 TIDAC/HS 04/08 2100 AC SC Ipratropium [place] 2.5 ML ONCE ONE 04/08 1315 DC 04/08 INH 04/08 1316 1334 Levetiracetam 500 MG BID 04/08 2100 AC 04/09 PO 0831 Nystatin 1 ALEKSEY TID PRN 04/08 2230 AC TOP Tiotropium [place] 1 PUF DAILY 04/08 1748 AC 04/09 INH 0831 Tramadol HCl 50 MG BID PRN 04/08 1800 AC PO Vital Signs & I&O Last 24 Hrs of Vitals and I&O: Vital Signs Date Time Temp Pulse Resp B/P B/P Pulse O2 O2 Flow FiO2 Mean Ox Delivery Rate 04/09 1147 95 Room Air 04/09 0831 86 136/67 / 0800 Room Air 04/09 0655 97.5 88 18 156/86 98 Room Air 04/08 2000 98.7 96 20 100/54 97 Room Air 04/08 2000 97 Room Air 04/08 1905 97.8 87 18 136/61 96 Room Air 04/08 1517 98.2 93 17 117/58 94 Room Air 04/08 1431 97 06 1258 97.8 96 22 117/60 97 Room Air Intake & Output 04/09 1600 04/09 0800 06 0000 Intake Total 35 Output Total 200 0 Balance -200 35 Intake, IV 10 Intake, Oral 25 Number 0 Bowel Movements Output, Urine 200 0 Patient 191 lb 203 lb Weight Weight Bed scale Bed scale Measurement Method Laboratory Tests 04/09 04/08 04/08 0715 1802 1731 Chemistry Sodium (137 - 145 mmol/L) 143 Potassium (3.5 - 5.1 mmol/L) 4.3 Chloride (98 - 107 mmol/L) 107 Carbon Dioxide (22 - 30 mmol/L) 20 L Anion Gap (5 - 16) 16 BUN (9 - 20 mg/dL) 49 H Creatinine (0.7 - 1.2 mg/dL) 1.2 Estimated GFR (>60 ml/min) 59 L BUN/Creatinine Ratio (7 - 25 %) 40.8 H Lactic Acid (0.7 - 2.1 mmol/L) 2.1 Hematology CBC w Diff NO MAN DIFF REQ WBC (4.8 - 10.8 /CUMM) 5.7 RBC (4.70 - 6.10 /CUMM) 3.44 L Hgb (14.0 - 18.0 G/DL) 9.6 L Hct (42 - 52 %) 29.1 L MCV (80.0 - 94.0 FL) 84.5 MCH (27.0 - 31.0 PG) 27.8 MCHC (33.0 - 37.0 G/DL) 32.9 L RDW (11.5 - 14.5 %) 17.1 H Plt Count (130 - 400 /CUMM) 331 MPV (7.4 - 10.4 FL) 7.7 Gran % (42.2 - 75.2 %) 56.0 Lymphocytes % (20.5 - 51.1 %) 27.4 Monocytes % (1.7 - 9.3 %) 12.9 H Eosinophils % (0 - 5 %) 3.0 Basophils % (0.0 - 2.0 %) 0.7 Absolute Granulocytes (1.4 - 6.5 /CUMM) 3.2 Absolute Lymphocytes (1.2 - 3.4 /CUMM) 1.6 Absolute Monocytes (0.10 - 0.60 /CUMM) 0.7 H Absolute Eosinophils (0.0 - 0.7 /CUMM) 0.2 Absolute Basophils (0.0 - 0.2 /CUMM) 0 Urines Urine Color Cancelled Urine Clarity Cancelled Urine pH Cancelled Ur Specific [place] Cancelled Urine Protein Cancelled Urine Ketones Cancelled Urine Nitrite Cancelled Urine Bilirubin Cancelled Urine Urobilinogen Cancelled Ur Leukocyte Esterase Cancelled Ur Microscopic Cancelled Urine Hemoglobin Cancelled Urine Glucose Cancelled 04/08 04/08 1556 1154 Hematology Haptoglobin Pending Urines Urinalysis LIGHT H Urine Color (YEL,AMB,STR) YEL Urine Clarity (CLEAR) CLEAR Urine pH (5.0 - 8.0) 6.0 Ur Specific [place] (1.001 - 1.035) >= 1.030 Urine Protein (NEG,<30 MG/DL) NEG Urine Ketones (NEG) NEG Urine Nitrite (NEG) NEG Urine Bilirubin (NEG) NEG Urine Urobilinogen (0.1 - 1.0 EU/dl) 0.2 Ur Leukocyte Esterase (NEG) NEG Ur Microscopic SEDIMENT EXAMINED Urine RBC (0 - 5 /HPF) 50-75 H Urine WBC (0 - 2 /HPF) RARE Ur Epithelial Cells (NONE,FEW) RARE Urine Bacteria (NEG/NONE) RARE H Urine Mucus (FEW,NONE) RARE Urine Hemoglobin (NEG) LARGE H Urine Glucose (N MG/DL) NEG 04/08 1154 Chemistry Sodium (137 - 145 mmol/L) 144 Potassium (3.5 - 5.1 mmol/L) 4.7 Chloride (98 - 107 mmol/L) 104 Carbon Dioxide (22 - 30 mmol/L) 20 L Anion Gap (5 - 16) 20 H BUN (9 - 20 mg/dL) 49 H Creatinine (0.7 - 1.2 mg/dL) 2.3 H Estimated GFR (>60 ml/min) 28 L BUN/Creatinine Ratio (7 - 25 %) 21.3 Glucose (65 - 99 mg/dL) 104 H Hemoglobin A1c (4.2 - 5.8 %) Pending Calcium (8.4 - 10.2 mg/dL) 8.4 Magnesium (1.6 - 2.3 mg/dL) 2.3 Iron (49 - 181 ug/dL) 32 L TIBC (261 - 462 ug/dL) 362 Ferritin (17.9 - 464 ng/mL) 9.0 L Total Bilirubin (0.2 - 1.3 mg/dL) 0.3 AST (17 - 59 U/L) 15 L ALT (21 - 72 U/L) 22 Alkaline Phosphatase (< 127 U/L) 84 Lactate Dehydrogenase (313 - 618 U/L) 404 Creatine Kinase (55 - 170 U/L) 164 Troponin I (<0.11 ng/ml) < 0.01 Total Protein (6.3 - 8.2 g/dL) 7.0 Albumin (3.5 - 5.0 g/dL) 4.1 Globulin (1.9 - 4.2 gm/dL) 2.9 Albumin/Globulin Ratio (1.1 - 2.2 %) 1.4 Vitamin B12 (239 - 931 pg/mL) > 1000 H Folate (2.76 - 20.0 ng/mL) 17.1 Cortisol AM Sample (4.46 - 22.7 ug/dL) 14.4 Hematology CBC w Diff NO MAN DIFF REQ WBC (4.8 - 10.8 /CUMM) 6.6 RBC (4.70 - 6.10 /CUMM) 3.66 L Hgb (14.0 - 18.0 G/DL) 10.1 L Hct (42 - 52 %) 30.9 L MCV (80.0 - 94.0 FL) 84.4 MCH (27.0 - 31.0 PG) 27.6 MCHC (33.0 - 37.0 G/DL) 32.8 L RDW (11.5 - 14.5 %) 17.4 H Plt Count (130 - 400 /CUMM) 350 MPV (7.4 - 10.4 FL) 7.3 L Gran % (42.2 - 75.2 %) 71.9 Lymphocytes % (20.5 - 51.1 %) 15.4 L Monocytes % (1.7 - 9.3 %) 11.8 H Eosinophils % (0 - 5 %) 0.5 Basophils % (0.0 - 2.0 %) 0.4 Absolute Granulocytes (1.4 - 6.5 /CUMM) 4.7 Absolute Lymphocytes (1.2 - 3.4 /CUMM) 1.0 L Absolute Monocytes (0.10 - 0.60 /CUMM) 0.8 H Absolute Eosinophils (0.0 - 0.7 /CUMM) 0 Absolute Basophils (0.0 - 0.2 /CUMM) 0 Microbiology Date/Time Procedure - Status Source Growth 04/08 1927 Clostridium difficile Toxin A & B - RECD STOOL 04/08 155 Urine Culture - RECD URINE ROUT Impression/Plan Impression/Plan Impression/Plan: General Appearance: well developed/nourished, alert, awake, anxious, moderate distress, obese Head: atraumatic, normal appearance Eyes: Bilateral: normal appearance, PERRL, EOMI. Ears, Nose, Throat: normal pharynx, normal ENT inspection, hearing grossly normal Neck: normal inspection, supple, full range of motion, no midline tenderness Respiratory: chest non-tender, quiet respiration, decreased breath sounds, wheezing Cardiovascular: regular rate/rhythm, normal peripheral pulses, tachycardia, norml femoral pulses equa Peripheral Pulses: 4+ carotid (R), 4+ carotid (L) Gastrointestinal: normal bowel sounds, soft, non-tender, no organomegaly Extremities: normal inspection, normal capillary refill, normal range of motion, no edema Neurologic/Psych: no motor/sensory deficits, awake, alert, oriented x 3, normal mood/affect, 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 There is intrafissural fat in the inferior aspect of the left major fissure. A hiatal hernia contains approximately one half the stomach. LIVER, GALLBLADDER, AND BILIARY TREE: Normal. PANCREAS: Age-related atrophy. SPLEEN: Unremarkable. ADRENAL GLANDS: Unremarkable. KIDNEYS AND URETERS: The kidneys are normal in size, shape, and attenuation. The right kidney measures 11.1 cm in length, the left kidney measures 10.7 cm. No hydronephrosis. A 4 mm nonobstructing calculus is located in the lower pole the left kidney. A 1.6 cm in diameter exophytic cyst arises from the midportion of the right kidney. A 0.9 cm exophytic cyst arises from the upper pole of the right kidney. There is bilateral chronic perinephric stranding. BLADDER: Partially filled and unremarkable. GASTROINTESTINAL TRACT: Sigmoid diverticulosis is present without diverticulitis. The appendix is normal and contains some dense intraluminal material. Small bowel is not dilated. ABDOMINAL WALL: There is a small fat-containing umbilical hernia. LYMPH NODES: Normal. VASCULAR: Calcific atherosclerosis involves the thoracic and abdominal aorta and branch vessels. PELVIC VISCERA: Coarse calcifications are present in otherwise normal-appearing prostate gland. OSSEOUS STRUCTURES: No fractures. A dedicated CT exam of the lumbosacral spine was obtained today and the results are included in a separate report. IMPRESSION: 1. Hiatal hernia containing a significant portion of the stomach. 2. Nonobstructing calculus, lower pole, left kidney. No hydronephrosis. 3. Diverticulosis without diverticulitis. 4. Posterior spinal fusion L4-L5, (reported separately). DICTATED BY: Papito Pandya MD DATE/TIME DICTATED:04/08/181537 IMPRESSION: 1. There are no acute fractures or subluxations. 2. There are sequelae of an instrumented posterior decompression and fusion at L4 and L5. The hardware appears intact. 3. There are multilevel spondylitic changes with spondylolistheses, facet arthropathy and foraminal narrowing as described above. 4. There is a partially visualized hiatal hernia, and is evidence of diverticulosis. DICTATED BY: Toni Travis MD DATE/TIME DICTATED:04/08/181523 IMPRESSION Elderly Gentleman with worsening dementia with parkinsons features prob lewy body dementia with worsening overall status now with Diarrhea and a fall with some dyspnea His issues included * Diarrhea, dehydration, with acute renal failure. RUle out infection. 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 not a candidate for stent as his tracheobronchomalacia is diffuse even present in the right and the left main bronchus with is audible wheezing related to tracheo bronchomalacia * Moderate COPD with no significant COPD exacerbation * Significant hiatal hernia with recurrent GERD contributing to his issues * Progressive dementia most likely related to the lewy body dementia, * BPH, no clinical UTI * Patient has chronic low back pain with chronic pain medication before now on tramadol * DM / HTN/ electrolyte abnormalities / GERD etc REC work up diarrhea, hold colace, mag, metformin, omeprazole Cont other home meds including keppra and tramadol, use prn tylenol Hold losartan, if htn persists then start amlodapine 5 mg COnt inhalers and use prn nebs 81 mg asa Iron def anemia needs work up, Ask GI to see on a nonemergent basis to see if correa endoscopy can be done while in the hospital if able COnt sinemet, keppra level Will follow
[2018-04-09 15:02] VITALS: BP 114/61
[2018-04-09 22:37] VITALS: BP 118/56
[2018-04-10 06:48] VITALS: BP 120/60
--- NOTE | 2018-04-10 08:40 | PN- Housestaff ---
Subjective Follow-up For: Diarrhea JAN Subjective: Patient offers no complaints. No acute events overnight Review of Systems Constitutional: Reports: see HPI. Objective Last 24 Hrs of Vital Signs/I&O Vital Signs Date Time Temp Pulse Resp B/P B/P Pulse O2 O2 Flow FiO2 Mean Ox Delivery Rate 04/10 1037 96 Room Air 04/10 0844 68 126/70 04/10 0648 97.8 80 18 120/60 96 Room Air 04/10 0000 Room Air 04/09 2237 97.6 82 19 118/56 95 Room Air 06/ 1845 95 Room Air 06/ 1502 98.0 84 20 114/61 95 Intake & Output 04/10 1600 04/10 0800 04/10 0000 Intake Total 360 480 Output Total Balance 360 480 Intake, Oral 360 480 Number 1 Bowel Movements Patient 1191 lb Weight Weight Bed scale Measurement Method Physical Exam General Appearance: Alert, Cooperative, No Acute Distress, Disoriented Cardiovascular: Regular Rate, Normal S1, Normal S2 Lungs: Clear to Auscultation, Normal Air Movement Abdomen: Normal Bowel Sounds, Soft, No Tenderness Current Medications: Current Medications Sig/Rufus Start time Last Medication Dose Route Stop Time Status Admin Albuterol Sulfate 3 ML BID 04/09 2100 DCD 04/10 INH 1037 Albuterol Sulfate 3 ML Q4P PRN 04/08 1800 DCD INH Amlodipine Besylate 2.5 MG DAILY 04/09 0900 DCD 04/10 PO 0844 Aspirin 81 MG DAILY 04/09 1810 DCD 04/10 PO 0844 Budesonide/ 2 PUF BID 04/08 2100 DCD 04/10 Formoterol Fumarate INH 0843 Carbidopa/Levodopa 1 TAB DAILY 04/09 0900 DCD 04/10 PO 0844 Diphenhydramine HCl 25 MG ONCE ONE 04/09 2215 DC 04/09 IV 04/09 2216 2218 Folic Acid 1 MG DAILY 04/08 1748 DCD 04/10 PO 0844 Heparin Sodium 5,000 UNIT Q8 04/09 0650 DCD 04/10 (Porcine) SC 0620 Insulin Aspart 0 TIDAC/HS 04/08 2100 DCD SC Levetiracetam 500 MG BID 04/08 2100 DCD 04/10 PO 0844 Nystatin 1 ALEKSEY TID PRN 04/08 2230 DCD TOP Tiotropium [place] 1 PUF DAILY 04/08 1748 DCD 04/10 INH 0844 Tramadol HCl 50 MG BID PRN 04/08 1800 DCD 04/09 PO 2018 Last 24 Hrs of Lab/Yvon Results Last 24 Hrs of Labs/Mics: Laboratory Tests 04/10/18 0810: Anion Gap 9, Estimated GFR > 60, BUN/Creatinine Ratio 47.8 H, Levetiracetam Pending Microbiology 04/09 1811 STOOL: Cryptosporidium Antigen - CAN Cancelled: SPECIMEN NOT RECEIVED IN LABORATORY 04/09 1811 STOOL: Giardia Antigen (YVON) - CAN Cancelled: SPECIMEN NOT RECEIVED IN LABORATORY Assessment/Plan Assessment: 73-year-old gentleman with past medical history of COPD, diastolic CHF, HTN, Parkinson's disease, HLD, COPD not on home O2, GERD, chronic back pain and diabetes who presented to the ED with complaints of shortness of breath, diarrhea. Problem list: 1. Diarrhe with anionic gap metabolic acidosis 2. JAN 3. Fall-fall precautions 4. Parkinson's 5. Dementia 6. Bronchomalacia Plan: Patient will be discharge with [facility] for seizures Patient will receive a referral for GI to evaluate anemia Spoke with patient family who agrees ok to being home today Problem List: 1. Altered mental status 2. Acute renal failure Pain Ratin Pain Location: NA Pain Goal: Remain pain free Pain Plan: NA Tomorrow's Labs & Rationales: none
[2018-04-10 08:44] VITALS: BP 126/70
--- NOTE | 2018-04-10 09:56 | PN- Pulmonary ---
Subjective HPI/Critical Care Issues: Doing well stable NO further diarrhea Objective Current Medications: Current Medications Sig/Rufus Start time Last Medication Dose Route Stop Time Status Admin Albuterol Sulfate 3 ML BID 04/09 2100 AC 04/09 INH 1845 Albuterol Sulfate 3 ML Q4P PRN 04/08 1800 AC INH Amlodipine Besylate 2.5 MG DAILY 04/09 0900 AC 04/10 PO 0844 Aspirin 81 MG DAILY 04/09 1810 AC 04/10 PO 0844 Budesonide/ 2 PUF BID 04/08 2100 AC 04/10 Formoterol Fumarate INH 0843 Carbidopa/Levodopa 1 TAB DAILY 04/09 0900 AC 04/10 PO 0844 Diphenhydramine HCl 25 MG ONCE ONE 04/09 2215 DC 04/09 IV 04/09 221 2218 Folic Acid 1 MG DAILY 04/08 1748 AC 04/10 PO 0844 Heparin Sodium 5,000 UNIT Q8 04/09 0650 AC 04/10 (Porcine) SC 0620 Insulin Aspart 0 TIDAC/HS 04/08 2100 AC SC Levetiracetam 500 MG BID 04/08 2100 AC 04/10 PO 0844 Nystatin 1 ALEKSEY TID PRN 04/08 2230 AC TOP Tiotropium [place] 1 PUF DAILY 04/08 1748 AC 04/10 INH 0844 Tramadol HCl 50 MG BID PRN 04/08 1800 AC 04/09 PO 2018 Vital Signs & I&O Last 24 Hrs of Vitals and I&O: Vital Signs Date Time Temp Pulse Resp B/P B/P Pulse O2 O2 Flow FiO2 Mean Ox Delivery Rate 04/10 0844 68 126/70 04/10 0648 97.8 80 18 120/60 96 Room Air 04/10 0000 Room Air 04/09 2237 97.6 82 19 118/56 95 Room Air / 1845 95 Room Air 04/09 1502 98.0 84 20 114/61 95 / 1150 Room Air / 1147 95 Room Air Intake & Output 04/10 1600 04/10 0800 04/10 0000 Intake Total 360 480 Output Total Balance 360 480 Intake, Oral 360 480 Number 1 Bowel Movements Patient 1191 lb Weight Weight Bed scale Measurement Method Laboratory Tests 04/10 04/09 04/08 0810 0715 1802 Chemistry Sodium (137 - 145 mmol/L) 142 143 Potassium (3.5 - 5.1 mmol/L) 4.2 4.3 Chloride (98 - 107 mmol/L) 111 H 107 Carbon Dioxide (22 - 30 mmol/L) 22 20 L Anion Gap (5 - 16) 9 16 BUN (9 - 20 mg/dL) 43 H 49 H Creatinine (0.7 - 1.2 mg/dL) 0.9 1.2 Estimated GFR (>60 ml/min) > 60 59 L BUN/Creatinine Ratio (7 - 25 %) 47.8 H 40.8 H Hematology CBC w Diff NO MAN DIFF REQ WBC (4.8 - 10.8 /CUMM) 5.7 RBC (4.70 - 6.10 /CUMM) 3.44 L Hgb (14.0 - 18.0 G/DL) 9.6 L Hct (42 - 52 %) 29.1 L MCV (80.0 - 94.0 FL) 84.5 MCH (27.0 - 31.0 PG) 27.8 MCHC (33.0 - 37.0 G/DL) 32.9 L RDW (11.5 - 14.5 %) 17.1 H Plt Count (130 - 400 /CUMM) 331 MPV (7.4 - 10.4 FL) 7.7 Gran % (42.2 - 75.2 %) 56.0 Lymphocytes % (20.5 - 51.1 %) 27.4 Monocytes % (1.7 - 9.3 %) 12.9 H Eosinophils % (0 - 5 %) 3.0 Basophils % (0.0 - 2.0 %) 0.7 Absolute Granulocytes (1.4 - 6.5 /CUMM) 3.2 Absolute Lymphocytes (1.2 - 3.4 /CUMM) 1.6 Absolute Monocytes (0.10 - 0.60 /CUMM) 0.7 H Absolute Eosinophils (0.0 - 0.7 /CUMM) 0.2 Absolute Basophils (0.0 - 0.2 /CUMM) 0 Toxicology Levetiracetam Pending Urines Urine Color Cancelled Urine Clarity Cancelled Urine pH Cancelled Ur Specific [place] Cancelled Urine Protein Cancelled Urine Ketones Cancelled Urine Nitrite Cancelled Urine Bilirubin Cancelled Urine Urobilinogen Cancelled Ur Leukocyte Esterase Cancelled Ur Microscopic Cancelled Urine Hemoglobin Cancelled Urine Glucose Cancelled 04/08 04/08 04/08 1731 1556 1154 Chemistry Lactic Acid (0.7 - 2.1 mmol/L) 2.1 Hematology Haptoglobin Pending Urines Urinalysis LIGHT H Urine Color (YEL,AMB,STR) YEL Urine Clarity (CLEAR) CLEAR Urine pH (5.0 - 8.0) 6.0 Ur Specific [place] (1.001 - 1.035) >= 1.030 Urine Protein (NEG,<30 MG/DL) NEG Urine Ketones (NEG) NEG Urine Nitrite (NEG) NEG Urine Bilirubin (NEG) NEG Urine Urobilinogen (0.1 - 1.0 EU/dl) 0.2 Ur Leukocyte Esterase (NEG) NEG Ur Microscopic SEDIMENT EXAMINED Urine RBC (0 - 5 /HPF) 50-75 H Urine WBC (0 - 2 /HPF) RARE Ur Epithelial Cells (NONE,FEW) RARE Urine Bacteria (NEG/NONE) RARE H Urine Mucus (FEW,NONE) RARE Urine Hemoglobin (NEG) LARGE H Urine Glucose (N MG/DL) NEG 04/08 1154 Chemistry Sodium (137 - 145 mmol/L) 144 Potassium (3.5 - 5.1 mmol/L) 4.7 Chloride (98 - 107 mmol/L) 104 Carbon Dioxide (22 - 30 mmol/L) 20 L Anion Gap (5 - 16) 20 H BUN (9 - 20 mg/dL) 49 H Creatinine (0.7 - 1.2 mg/dL) 2.3 H Estimated GFR (>60 ml/min) 28 L BUN/Creatinine Ratio (7 - 25 %) 21.3 Glucose (65 - 99 mg/dL) 104 H Hemoglobin A1c (4.2 - 5.8 %) Pending Calcium (8.4 - 10.2 mg/dL) 8.4 Magnesium (1.6 - 2.3 mg/dL) 2.3 Iron (49 - 181 ug/dL) 32 L TIBC (261 - 462 ug/dL) 362 Ferritin (17.9 - 464 ng/mL) 9.0 L Total Bilirubin (0.2 - 1.3 mg/dL) 0.3 AST (17 - 59 U/L) 15 L ALT (21 - 72 U/L) 22 Alkaline Phosphatase (< 127 U/L) 84 Lactate Dehydrogenase (313 - 618 U/L) 404 Creatine Kinase (55 - 170 U/L) 164 Troponin I (<0.11 ng/ml) < 0.01 Total Protein (6.3 - 8.2 g/dL) 7.0 Albumin (3.5 - 5.0 g/dL) 4.1 Globulin (1.9 - 4.2 gm/dL) 2.9 Albumin/Globulin Ratio (1.1 - 2.2 %) 1.4 Vitamin B12 (239 - 931 pg/mL) > 1000 H Folate (2.76 - 20.0 ng/mL) 17.1 Cortisol AM Sample (4.46 - 22.7 ug/dL) 14.4 Hematology CBC w Diff NO MAN DIFF REQ WBC (4.8 - 10.8 /CUMM) 6.6 RBC (4.70 - 6.10 /CUMM) 3.66 L Hgb (14.0 - 18.0 G/DL) 10.1 L Hct (42 - 52 %) 30.9 L MCV (80.0 - 94.0 FL) 84.4 MCH (27.0 - 31.0 PG) 27.6 MCHC (33.0 - 37.0 G/DL) 32.8 L RDW (11.5 - 14.5 %) 17.4 H Plt Count (130 - 400 /CUMM) 350 MPV (7.4 - 10.4 FL) 7.3 L Gran % (42.2 - 75.2 %) 71.9 Lymphocytes % (20.5 - 51.1 %) 15.4 L Monocytes % (1.7 - 9.3 %) 11.8 H Eosinophils % (0 - 5 %) 0.5 Basophils % (0.0 - 2.0 %) 0.4 Absolute Granulocytes (1.4 - 6.5 /CUMM) 4.7 Absolute Lymphocytes (1.2 - 3.4 /CUMM) 1.0 L Absolute Monocytes (0.10 - 0.60 /CUMM) 0.8 H Absolute Eosinophils (0.0 - 0.7 /CUMM) 0 Absolute Basophils (0.0 - 0.2 /CUMM) 0 Microbiology Date/Time Procedure - Status Source Growth 04/09 1811 Cryptosporidium Antigen - COLB STOOL 04/09 1811 Giardia Antigen (ALCON) - COLB STOOL 04/08 1927 Clostridium difficile Toxin A & B - COMP STOOL 04/08 155 Urine Culture - RES URINE ROUT Impression/Plan Impression/Plan Impression/Plan: General Appearance: well developed/nourished, alert, awake, anxious, moderate distress, obese Head: atraumatic, normal appearance Eyes: Bilateral: normal appearance, PERRL, EOMI. Ears, Nose, Throat: normal pharynx, normal ENT inspection, hearing grossly normal Neck: normal inspection, supple, full range of motion, no midline tenderness Respiratory: chest non-tender, quiet respiration, decreased breath sounds, wheezing Cardiovascular: regular rate/rhythm, normal peripheral pulses, tachycardia, norml femoral pulses equa Peripheral Pulses: 4+ carotid (R), 4+ carotid (L) Gastrointestinal: normal bowel sounds, soft, non-tender, no organomegaly Extremities: normal inspection, normal capillary refill, normal range of motion, no edema Neurologic/Psych: no motor/sensory deficits, awake, alert, oriented x 3, normal mood/affect, wire dropper II-XII nml as tested, motor weakness Skin: intact, normal color, warm/dry Lymphatic: no anterior cervical ian LUNG BASES: The visualized lung bases are unremarkable. There is intrafissural fat in the inferior aspect of the left major fissure. A hiatal hernia contains approximately one half the stomach. LIVER, GALLBLADDER, AND BILIARY TREE: Normal. PANCREAS: Age-related atrophy. SPLEEN: Unremarkable. ADRENAL GLANDS: Unremarkable. KIDNEYS AND URETERS: The kidneys are normal in size, shape, and attenuation. The right kidney measures 11.1 cm in length, the left kidney measures 10.7 cm. No hydronephrosis. A 4 mm nonobstructing calculus is located in the lower pole the left kidney. A 1.6 cm in diameter exophytic cyst arises from the midportion of the right kidney. A 0.9 cm exophytic cyst arises from the upper pole of the right kidney. There is bilateral chronic perinephric stranding. BLADDER: Partially filled and unremarkable. GASTROINTESTINAL TRACT: Sigmoid diverticulosis is present without diverticulitis. The appendix is normal and contains some dense intraluminal material. Small bowel is not dilated. ABDOMINAL WALL: There is a small fat-containing umbilical hernia. LYMPH NODES: Normal. VASCULAR: Calcific atherosclerosis involves the thoracic and abdominal aorta and branch vessels. PELVIC VISCERA: Coarse calcifications are present in otherwise normal-appearing prostate gland. OSSEOUS STRUCTURES: No fractures. A dedicated CT exam of the lumbosacral spine was obtained today and the results are included in a separate report. IMPRESSION: 1. Hiatal hernia containing a significant portion of the stomach. 2. Nonobstructing calculus, lower pole, left kidney. No hydronephrosis. 3. Diverticulosis without diverticulitis. 4. Posterior spinal fusion L4-L5, (reported separately). DICTATED BY: Papito Pandya MD DATE/TIME DICTATED:04/08/181537 IMPRESSION: 1. There are no acute fractures or subluxations. 2. There are sequelae of an instrumented posterior decompression and fusion at L4 and L5. The hardware appears intact. 3. There are multilevel spondylitic changes with spondylolistheses, facet arthropathy and foraminal narrowing as described above. 4. There is a partially visualized hiatal hernia, and is evidence of diverticulosis. DICTATED BY: Toni Travis MD DATE/TIME DICTATED:04/08/181523 IMPRESSION Elderly Gentleman with worsening dementia with parkinsons features prob lewy body dementia with worsening overall status now with Diarrhea and a fall with some dyspnea His issues included * Resolved Diarrhea, dehydration, with acute renal failure. RUle out infection. 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 not a candidate for stent as his tracheobronchomalacia is diffuse even present in the right and the left main bronchus with is audible wheezing related to tracheo bronchomalacia * Moderate COPD with no significant COPD exacerbation * Significant hiatal hernia with recurrent GERD contributing to his issues * Progressive dementia most likely related to the lewy body dementia, * BPH, no clinical UTI * Patient has chronic low back pain with chronic pain medication before now on tramadol * DM / HTN/ electrolyte abnormalities / GERD etc REC Start metformin 500 after supper Cont other home meds including keppra and tramadol, use prn tylenol Start amlodapine 5 mg No further losartan COnt inhalers and use prn nebs 81 mg asa Iron def anemia needs work up, Ask GI to see on a nonemergent basis to see if correa endoscopy can be done while in the hospital if able COnt sinemet, keppra level If stable can be dcd today or in am Will follow
[2018-04-10] MEDS ORDERED: ASPIRIN81 M4 PO (11:19)
--- NOTE | 2018-04-10 11:22 | Patient Discharge Instructions ---
Discharge Instructions General Discharge Information You were seen/treated for: Diarrhea JAN Seizures You had these procedures: none Special Instructions: Follow up with your PCP within 1 week of discharge Follow up with GI within 1 week of discharge for possible endoscopy/colonoscopy Diet Continue normal diet: Yes Activity Full Activity/No Limits: Yes Acute Coronary Syndrome Inclusion Criteria At DC or during hospital stay patient has or had the following: ACS DIAGNOSIS No Discharge Core Measures Meds if any: Prescribed or Continued at Discharge Meds if any: NOT Prescribed or Continued at Discharge Congestive Heart Failure Inclusion Criteria At DC or during hospital stay patient has or had the following: CHF DIAGNOSIS No Discharge Core Measures Meds if any: Prescribed or Continued at Discharge Meds if any: NOT Prescribed or Continued at Discharge Cerebrovascular accident Inclusion Criteria At DC or during hospital stay patient has or had the following: CVA/TIA Diagnosis No Discharge Core Measures Meds if any: Prescribed or Continued at Discharge Meds if any: NOT Prescribed or Continued at Discharge Venous thromboembolism Inclusion Criteria VTE Diagnosis No VTE Type NONE VTE Confirmed by (Test) NONE Discharge Core Measures - Per Current guidelines, there needs to be overlap - treatment for the first 5 days of Warfarin therapy. - If discharged on Warfarin prior to 5 days of - overlap therapy, the patient will need to be - assessed for post discharge needs including - *Post discharge parental anticoagulation - *Warfarin and/or parental anticoagulation education - *Follow up date to check INR post discharge At least 5 days overlap therapy as Inpatient No Meds if any: Prescribed or Continued at Discharge Note: Overlap Therapy is Warfarin and Anticoagulant Meds if any: NOT Prescribed or Continued at Discharge
[2018-04-10] MEDS ORDERED: KEPPRA500 M1 PO (11:48)
== END 2018-04-10 14:00 | DRG 683 ==
LOC: ERH 10:32 → ERHI 16:52 → EDBEDREQ 18:01 → ENRESERV 18:44 → 2NA 19:56 → ENTRNSPT 04-10 13:56 → 2NA 04-10 14:00 → EDTRNSPTSTS 04-10 14:01 → EDTRNSPT 04-10 14:01 → CMPTRNSPT 04-10 14:13
PROVIDERS: Internal Medicine Hematology & Oncology; Physician Assistant Medical
DX: N17.9 Acute kidney failure, unspecified (principal); I50.32 Chronic diastolic (congestive) heart failure; E87.2 Acidosis; J44.9 Chronic obstructive pulmonary disease, unspecified; I11.0 Hypertensive heart disease with heart failure; G20 Parkinson's disease; F03.90 Unspecified dementia, unspecified severity, without behavioral disturbance, psychotic disturbance, mood disturbance, and anxiety; E78.5 Hyperlipidemia, unspecified; J98.09 Other diseases of bronchus, not elsewhere classified; K21.9 Gastro-esophageal reflux disease without esophagitis; R19.7 Diarrhea, unspecified; Z79.84 Long term (current) use of oral hypoglycemic drugs; Z79.51 Long term (current) use of inhaled steroids; M54.9 Dorsalgia, unspecified; W18.30XA Fall on same level, unspecified, initial encounter; Z91.81 History of falling; Y92.009 Unspecified place in unspecified non-institutional (private) residence as the place of occurrence of the external cause; Z66 Do not resuscitate; N40.0 Benign prostatic hyperplasia without lower urinary tract symptoms; K44.9 Diaphragmatic hernia without obstruction or gangrene; E86.0 Dehydration; M47.9 Spondylosis, unspecified
CPT/HCPCS: 1263; 6030; 36415; 36592; 71046; 74176; 81001; 82436; 83010; 87086; 87328; 87329; 93005; 93010; 97110-GO; 97116-GO; 97161-GP; 97530-GO; G0378; J0131; J1200; J1644; J3490